=== PATIENT | female | born 1960 | race Caucasian/White ===

== ENCOUNTER 2020-09-29 17:37 | Emergency (ER) | payer SELFPAY ==
--- NOTE | ~2020-09-29 | XR_ITS ---
EXAMINATION: XR shoulder RT min 2V DATE: 09/29/2020 18:17 INDICATION: Right shoulder pain. Injury. TECHNIQUE: 4 views of right shoulder were obtained. COMPARISON: Right shoulder radiographs 09/22/2014 FINDINGS: Bone alignment is normal. No fracture. Glenohumeral joint is normal. There is mild acromioc lavicular joint osteoarthritis. IMPRESSION: 1. Mild right acromioclavicular joint osteoarthritis. Reviewed, dictated and finalized at location A. OR PUBLICATIONS
[2020-09-29 17:45] VITALS: BP 130/82; PULSE 82; RESP 20; TEMP 37; O2SAT 96
[2020-09-29] MEDS: KETOROLAC (*BKC) 60 MG/2 ML VIAL IM (18:05)
--- NOTE | 2020-09-29 19:02 | ED.UPPEXIN ---
HPI - Extremity Injury (Upper) General Source: patient Mode of arrival: ambulatory Limitations: no limitations History of Present Illness HPI narrative: Patient complains of right shoulder pain after loosing control of a big container. Pain is in right shoulder and moderately severe and ongoing, not relieved by home measures. Severity scale (1-10): 7 Relieving factors: none Exacerbating factors: movement of extremity Context: injury Associated symptoms: denies other symptoms Related Data Home Medications Medication Instructions Recorded Confirmed escitalopram oxalate 20 mg PO DAILY 09/29/20 09/29/20 oxybutynin chloride 10 mg PO DAILY 09/29/20 09/29/20 sucralfate 1 g PO DAILY 09/29/20 09/29/20 Allergies Allergy/AdvReac Type Severity Reaction Status Date / Time codeine Allergy Unknown Verified 09/29/20 17:52 Review of Systems Constitutional: Constitutional: Reports no additional constitutional complaints Eyes: Eyes: Reports no additional eye complaints ENT: Reports system reviewed and no additional complaints, except as documented Cardiovascular: Cardiovascular: Reports no additional cardiovascular complaints Respiratory: Respiratory: Reports no additional respiratory complaints Gastrointestinal: Gastrointestinal: Reports no additional gastrointestinal complaints Genitourinary: Genitourinary: Reports no additional female genitourinary complaints Musculoskeletal: Musculoskeletal: Reports no additional musculoskeletal complaints Integumentary/Breasts: Skin/Breast: Reports system reviewed and no additional complaints, except as docu Neurologic: Reports system reviewed and no additional complaints, except as documented Psychiatric: Psychiatric: Reports no additional psychiatric complaints Endocrine: Endocrine: Reports no additional endocrine complaints Hematologic/Lymphatic: Hematologic/Lymphatic: Reports no additional hematologic/lymphatic complaints Allergic/Immunologic: Allergic/Immunologic: Reports no additional allergic/immunologic complaints [facility] Past Medical History Medical History Chronic GERD Depression Surgical History Surgical History deliv NOS-unsp H/O: hysterectomy History of bladder surgery Family History Family History Mother Family history non-contributory Social History Social History Social History: no alcohol, no tobacco Exam Const: Orientation/consciousness: patient oriented x3 HENMT: Head: normal to inspection Eyes: Conjunctivae: conjunctivae normal Neck: Neck: normal visual inspection Chest: Chest palpation & inspection: normal inspection of the chest Resp: Effort & Inspection: normal respiratory effort Auscultation: clear to auscultation bilaterally Cardio: Rate: regular rate Rhythm: regular rhythm GI: GI Palp: Yes Soft to palpation (nontender) Skin: General skin exam: normal color Neuro: General: patient oriented x3 and moves all extremities Extrem: Other: tender at AC joint on right. Psych: Appearance: grossly normal Mental Status: mental status grossly normal Thought content: Yes Normal thought content present Course Course Emergency Course: plain films revealed a shoulder on the right. She was given ketorolac IM which seemed to help. We will send her home with ketorolac po, and some prn tramadol 50mg and a sling. I have instructed her in the use of the sling, and to follow up with her family doctor soon. Vital Signs Vital signs: Vital Signs Temperature 37.0 C 09/29/20 17:45 Pulse Rate 82 09/29/20 17:45 Respiratory Rate 20 09/29/20 17:45 Blood Pressure 130/82 09/29/20 17:45 Pulse Oximetry 96 09/29/20 17:45 Temperature 37.0 C 09/29/20 17:45 Pulse Rate 87 09/29/20 19:25 Respira
[2020-09-29 19:25] VITALS: BP 118/83; PULSE 87; RESP 14; O2SAT 100
== END 2020-09-29 19:32 | disposition home or self-care (01) ==
PROVIDERS: Emergency Provider Emergency Medicine; PCP Internal Medicine
DX: M25.511 Pain in right shoulder (principal); K21.9 Gastro-esophageal reflux disease without esophagitis
CPT/HCPCS: 73030; 96372; 99283; J1885

== ENCOUNTER 2022-05-27 14:30 | Emergency (ER) | payer SELFPAY ==
--- NOTE | ~2022-05-27 | XR_ITS ---
XR knee RT 2V DATE: 05/27/2022 15:30 INDICATION: Knee injury. [place] a pop. TECHNIQUE: Portable AP and lateral views COMPARISON: None FINDINGS: There is patellar enthesopathy at quadriceps and patellar tendon insertion sites. There is mild soft tissue prominence at the suprapatellar bursa which may indicate joint effusion. There is minimal periarticular spurring of the medial and patellofemoral compartments. Knee joint spa cristian are relatively preserved. No fracture or dislocation, periosteal reaction or bone destruction. No radiopaque intra-articular lo ose body or chondrocalcinosis is noted. IMPRESSION: Possible knee joint effusion Minimal osteoarthritis Reviewed, dictated and finalized at location A.
[2022-05-27 14:41] VITALS: BP 134/57; PULSE 72; O2SAT 96
[2022-05-27] MEDS: KETOROLAC 30 MG/ML VIAL (*BKC) IM (15:29)
--- NOTE | 2022-05-27 15:39 | ED.LOWEXIN ---
HPI - Extremity Injury (Lower) General Chief Complaint: Extremity Injury, Lower Stated Complaint: right knee injury Time Seen by Provider: 05/27/22 14:49 Source: patient Mode of arrival: ambulatory Limitations: no limitations History of Present Illness HPI Narrative: this is a 61-year-old female that presents with some right knee pain after she injured it going up stairs and causing some pain inflammation and tenderness is having increasing difficulty with walking it is tender to palpation and movement. complaint: knee injury Onset (ago): hour(s) Injury: Right: knee ( Tender to palpation) Type of Injury: blunt Place: home Severity: moderate Severity scale (1-10): 7 Relieving factors: immobilization Exacerbating factors: movement Context: walking Related Data Home Medications Medication Instructions Recorded Confirmed escitalopram oxalate 20 mg tablet 20 mg PO DAILY 09/29/20 05/27/22 oxybutynin chloride 10 mg 10 mg PO DAILY 09/29/20 05/27/22 tablet,extended release 24 hr sucralfate 1 gram tablet 1 g PO DAILY 09/29/20 05/27/22 Allergies Allergy/AdvReac Type Severity Reaction Status Date / Time codeine Allergy Unknown Verified 05/27/22 14:46 Review of Systems Review of Systems: All systems reviewed & are unremarkable except as noted in HPI and below PMFSH Past Medical History Medical History Chronic GERD Depression Surgical History Surgical History deliv NOS-unsp H/O: hysterectomy History of bladder surgery Family History Family History Mother Family history non-contributory Social History Social History Social History: no alcohol, no tobacco Exam Const: General: healthy appearing, no acute distress and alert Limitations: no limitations HENMT: Head: normal to inspection Ears: external ears normal Face/Nose/Sinus: Normal external nose present Face and sinus: normal facial exam Eyes: Conjunctivae: conjunctivae normal EOM: EOMs intact bilaterally Direct Ophthalmoscopy: no photophobia Neck: Neck: normal visual inspection Chest: Chest palpation & inspection: normal inspection of the chest Resp: Effort & Inspection: normal respiratory effort Cardio: Rate: regular rate Rhythm: regular rhythm GI: GI Palp: Yes Soft to palpation Skin: General skin exam: normal color Rashes: no rashes Wounds: no wounds Neuro: General: patient oriented x3 and moves all extremities Extrem: General: normal to inspection, no clubbing, cyanosis or edema and no pedal edema Other: Tenderness anterior knee with palpation and movement Psych: Mental Status: mental status grossly normal Affect: normal affect Course Course Emergency Course: reassessment of patient her pain has improved with Tylenol x-rays reviewed with patient which show minimal osteoarthritis. Vital Signs Vital signs: Vital Signs Pulse Rate 72 05/27/22 14:41 Blood Pressure 134/57 L 05/27/22 14:41 Pulse Oximetry 96 05/27/22 14:41 Oxygen Delivery Room Air 05/27/22 14:41 Pulse Rate 72 05/27/22 14:41 Blood Pressure 134/57 L 05/27/22 14:41 Pulse Oximetry 96 05/27/22 14:41 Oxygen Delivery Room Air 05/27/22 14:41 Critical Care Time Critical Care Time Critical Care Time: No Discharge Plan Discharge Clinical Impression: Right knee sprain Qualifiers: Encounter type: initial encounter Involved ligament of knee: unspecified ligament Qualified Code(s): S83.91XA - Sprain of unspecified site of right knee, initial encounter Patient Disposition: Home, Self-Care Condition: Stable Instructions: Antibiotic Form, Knee Sprain (ED) Additional Instructions: and take Tylenol or Motrin as needed for pain and follow-up with primary care physician for further evaluatio
[2022-05-27 16:10] VITALS: BP 111/61; PULSE 69; RESP 18; TEMP 36.2; O2SAT 96
== END 2022-05-27 16:10 | disposition home or self-care (01) ==
PROVIDERS: Emergency Provider Emergency Medicine; PCP Internal Medicine
DX: S83.91XA Sprain of unspecified site of right knee, initial encounter (principal)
CPT/HCPCS: 73560; 96372; 99283; J1885; L1830

== ENCOUNTER 2022-07-26 14:15 | Outpatient (CLI) | payer MEDICAID, SELFPAY ==
--- NOTE | ~2022-07-26 | XR_ITS ---
EXAMINATION: XR chest 2V DATE: 07/26/2022 14:45 INDICATION: Cough, shortness of breath and right-sided chest pain TECHNIQUE: PA and lateral views of the chest were obtained. COMPARISON: Chest radiograph dated 08/18/2015 FINDINGS: Small nodular opacity projecting over the lateral left lower lung zone. No other airspace opacities, pulmonary edema, pleural effusion or pneumothorax. The cardiomediastinal silhouette is normal. Severe midthoracic spondylosis. IMPRESSION: 1. New small nodular opacity at the lateral left lower lung zone which could represent atelectasis, p neumonia or neoplasm either benign or malignant. Recommend further evaluation with chest CT. Reviewed, dictated and finalized at location A. ERY HELPER IMPRESSION: 1. New small nodular opacity at the lateral left lower lung zone which could re present atelectasis, pneumonia or neoplasm either benign or malignant. Recommen d further evaluation with chest CT.
--- NOTE | 2022-07-26 12:07 | ECG_ITS ---
Measurements Intervals [place] Rate: 73 P: 52 AK: 137 QRS: 47 QRSD: 101 T: 40 QT: 396 QTc: 439 Interpretive Statements SINUS RHYTHM NORMAL ECG NO PREVIOUS ECG AVAILABLE FOR COMPARISON Electronically Signed On 07-26-2022 20:11:54 LICENSING ENGINEER by Feroz Adams M.D.
[2022-07-26 14:40] LABS: Basophils Absolute Auto 0.08 K/mm3 (0.00-0.10); Eosinophils Absolute Auto 0.23 K/mm3 (0.02-0.50); Eosinophils Percent Auto 2.9 % (1.0-6.0); Hematocrit 44.1 % (35.0-49.0); Hemoglobin 14.4 g/dL (12.0-15.0); Immature Granulocyte Absolute 0.02 K/mm3 (0.00-0.00); Immature Granulocyte Percent A 0.3 % (0.0-0.0); Lymphocytes Absolute Auto 1.63 K/mm3 (1.10-4.50); Lymphocytes Percent Auto 20.7 % (18.0-42.0); Mean Corpuscular HGB Conc 32.7 g/dL (32.0-36.0); Mean Corpuscular Hemoglobin 29.4 pg (27.0-31.0); Mean Corpuscular Volume 90.2 fL (78.0-102.0); Mean Platelet Volume 10.1 fl (9.2-11.8); Monocytes Absolute Auto 0.65 K/mm3 (0.10-0.90); Monocytes Percent Auto 8.3 % (2.0-11.0); Neutrophils Absolute Auto 5.3 K/mm3 (1.7-7.2); Neutrophils Percent Auto 66.8 % (50.0-70.0); Platelet Count Result 238 K/mm3 (150-420); Red Blood Count 4.89 M/mm3 (4.20-5.40); Red Cell Distribution Width 13.8 % (11.6-14.4); White Blood Count 7.9 K/mm3 (4.8-10.8)
[2022-07-26 14:55] LABS: D Dimer 0.47 mg/L (0.19-0.50)
[2022-07-26 15:14] LABS: Alanine Aminotransferase 26 U/L (14-59); Albumin Level 4.1 g/dL (3.4-5.0); Alkaline Phosphatase 79 U/L (46-116); Anion Gap 7 mmol/L (8-16); Aspartate Amino Transferase 20 U/L (15-37); Bilirubin,Total 0.4 mg/dL (0.00-1.00); Blood Urea Nitrogen 15 mg/dL (7-18); CRP < 0.5 mg/dL (0.0-0.9); Calcium 9.1 mg/dL (8.5-10.1); Carbon Dioxide 30 mmol/L (21-32); Chloride 103 mmol/L (98-108); Creatine Kinase 72 U/L (26-192); Estimated Glomerular Filt Rate 60; Glucose 109 mg/dL (70-99); Osmolality Calculated 291 mOsm/kg (285-295); Sodium 140 mmol/L (136-145); Thyroid Stimulating Hormone 8.52 uIU/mL (0.36-3.74); Total Protein 7.3 g/dL (6.4-8.2); Troponin I < 4.0 ng/L (0.00-60.4); Uric Acid 6.4 mg/dL (2.6-6.0)
== END 2022-07-26 14:16 | disposition home or self-care (01) ==
PROVIDERS: PCP Internal Medicine; Visit Provider Internal Medicine
DX: R07.9 Chest pain, unspecified (principal); M25.561 Pain in right knee; R91.8 Other nonspecific abnormal finding of lung field; R05.9 Cough, unspecified; R06.02 Shortness of breath
CPT/HCPCS: 36415; 71046; 80053; 82550; 82553; 84443; 84484; 84550; 85025; 85380; 86140; 93005

== ENCOUNTER 2022-09-05 09:30 | Outpatient (CLI) | payer MEDICAID, SELFPAY ==
--- NOTE | ~2022-09-05 | CT_ITS ---
CT Scan of the Chest without Contrast: Clinical Indication: Pulmonary nodule Technique: Contiguous sections were acquired throughout the chest without intravenous contrast. Dose reduction technique was used on this scan by utilizing automated exposure control and iterative recon struction technique. The dose-length product (DLP) was 509.39 mGy-cm. Findings: There is no evidence of any significant mediastinal, hilar or axillary lymphadenopathy. The mediastin al soft tissues appear normal. There is no evidence of pleural or pericardial effusion. The lungs are clear, aside from minimal atelectatic change or scarring at the lingula. Images through the upper abdomen reveal no abnormalities. Impression: Minimal atelectasis or scarring at the lingula, otherwise unremarkable exam. Reviewed, dictated and finalized at [facility]. SANDER OFFBEARER Impression: Minimal atelectasis or scarring at the lingula, otherwise unremarkable exam.
== END 2022-09-05 09:31 | disposition home or self-care (01) ==
LOC: CHSIMG 09:32
PROVIDERS: PCP Internal Medicine; Visit Provider Internal Medicine
DX: R91.1 Solitary pulmonary nodule (principal); R91.8 Other nonspecific abnormal finding of lung field
CPT/HCPCS: 71250

== ENCOUNTER 2022-09-11 13:25 | Outpatient (RCR) | payer OTHER, SELFPAY ==
--- NOTE | 2022-09-11 11:57 | PTOPEVAL1 ---
Assessment and note entered by Feroz Tijerina Evaluation Information Assessment Status Evaluation Diagnosis right knee pain Onset 06/26/22 Subjective Information Pt. reports that she developed knee pain around Thanksgiving. She reports she was going up her steps and felt a pop in the right knee. she reports that knee gave out on her. she was on crutches for about 3 weeks. She states that she continues to limp over the right knee. She states that pain is most notable with standing and walking. She reports that she is on her feet for 6 hours at work, and pain gets intense toward the end of the day. She reports also noticing increased pain with going up and down steps. She reports that her goal is to return to walking normal and decrease her pain. Reported Pain Level Pain Score 5: Self Report Assessment PT Clinical Summary Pt. is a 61 year old female who enters the clinic with right knee pain. She presents with impaired gait, impaird ROM, pain, and impaired strength. Continue with POC focusing on these areas to allow the pt. to be able to perform standing activities without pain or limitation. Plan of Care Interventions Electrical Stimulation,Gait Training,Hot Pack/Cold Pack,Manual Therapy,Neuro Re-education,Patient/ Caregiver Educati,Therapeutic Activities, Therapeutic Exercise,Self-Care/Home Management PT Services Indicated Yes Treatment Frequency and 2x/week x 10 visits Duration These treatments will address the objective and functional deficits as defined above. The patient will be advanced safely and appropriately in order for the patient to progress towards his/her prior level of function. Additional exercises will be introduced and as well as a comprehensive home exercise program upon discharge, if needed, ?to ensure carryover of functional gains achieved in the clinic. This treatment plan has been reviewed and agreement upon by the patient.
--- NOTE | 2022-12-20 13:54 | PCPTNOTE ---
Patient discharged due to not returning for remaining POC
== END 2022-10-17 23:59 | disposition home or self-care (01) ==
LOC: CHSPT 13:25
PROVIDERS: PCP Internal Medicine; Visit Provider Internal Medicine
DX: M25.561 Pain in right knee (principal)
CPT/HCPCS: 97014; 97035; 97110; 97140; 97161; G0283

== ENCOUNTER 2023-01-22 12:01 | Outpatient (CLI) | payer OTHER, SELFPAY ==
--- NOTE | ~2023-01-22 | CT_ITS ---
EXAMINATION: CT lung screening DATE: 01/22/2023 13:07 INDICATION: Lung cancer screening TECHNIQUE: Computed tomography (CT) of the chest was performed without intravenous contrast. The dose -length product was 278.87 mGy-cm. Automated exposure control and iterative reconstruction technique were employed. COMPARISON: CT dated 09/05/2022 FINDINGS: The heart size normal. No thoracic lymphadenopathy. No significant pleural or pericardial e ffusion. Heart size is normal. There is lingular atelectasis/scarring. No endobronchial lesions. No f ocal consolidation to suggest pneumonia. No pneumothorax. Moderate thoracic spondylosis. The left kid suyapa appears atrophic. IMPRESSION: 1. Lung-RADS category 1: Negative. Continue annual screening with noncontrast low-dose chest CT in 12 months. Reviewed, dictated and finalized at location [] IMPRESSION: 1. Lung-RADS category 1: Negative. Continue annual screening with noncontrast l ow-dose chest CT in 12 months.
--- NOTE | ~2023-01-22 | MM_ITS ---
EXAMINATION: MM screening yulia BI w kady HISTORY: Screening mammogram TECHNIQUE: Craniocaudal and mediolateral oblique 3-D tomosynthesis images were obtained and synthetic 2-D images were generated. CAD analysis was submitted and interpreted. COMPARISON: No prior mammogram is available for comparison at this institution. BREAST PARENCHYMAL COMPOSITION: There are scattered areas of fibroglandular density. FINDINGS: There is no evidence of suspicious mass, calcification, or architectural distortion to sugg est malignancy in either breast. There has been no suspicious interval change. IMPRESSION: 1. No mammographic evidence of malignancy. 2. Recommend routine screening mammography in one year. BI-RADS Category 1: Negative Reviewed, dictated and finalized at location A.
--- NOTE | ~2023-01-22 | DEXA_ITS ---
Bone Density Report Name: FAITH FRANKS Age: 62 Sex: Female Ethnicity: White Date of : 1960 Indication: postmenopausal; screening for osteoporosis; height loss; prior fracture; hysterectomy; Referring Provider: Miki Sims Study: Bone densitometry was performed. Exam Date: January 22, 2023 Accession number: [id number] Bone Density: Region BMD T-score Z-score Classification AP Spine(L1-L4) 1.129 0.7 2.4 Normal Femoral Neck (Left) 0.923 0.7 2.1 Normal Total Hip (Left) 1.137 1.6 2.7 Normal Femoral Neck (Right) 0.949 0.9 2.3 Normal Total Hip (Right) 1.062 1.0 2.1 Normal Femoral Neck Mean 0.936 0.8 2.2 Normal Total Hip Mean 1.099 1.3 2.4 Normal World Health Organization criteria for BMD impression classify patients as: Normal (T-score at or above -1.0), Osteopenia (T-score between -1.0 and -2.5), or Osteoporosis (T-score at or below -2.5). 10-year Fracture Risk: FRAX not reported because: All T-scores for Spine Total, Hip Total, Femoral Neck at or above -1.0 Prior hip or vertebral fracture Clinical Information Provided by Patient: Have had a previous hip or vertebral fracture Has had a low trauma fracture Smokes Has the following medical conditions: Hysterectomy Patient maximum height was 64 Menopause Age: 29 No regular weight bearing exercise Does not regularly consume dairy products Drinks caffeinated beverages Onset of menses at age 13 Number of children 3 Impression: The patient has normal bone mass. The patient has risk factors, including: smoking, previous fracture. Discussion: INCREASED RISK OF FRACTURE DUE TO HISTORY OF FRACTURE. The patient's previous fracture puts the patient at high risk of a future fracture. In untreated patients, the risk of osteoporotic fracture increases approximately two-fold for each 1.0 SD decrease in T-score. Low bone density is not the only risk factor for fracture; also consider factors such as patient's age, frailty or poor health, risk of falling, risk of injury, previous osteoporotic fracture, family history of osteoporosis, cigarette smoking, low body weight, etc. Not everyone with a low trauma fracture has osteoporosis; osteomalacia and other metabolic bone disorders should also be considered. Patients who have osteoporosis should be evaluated for specific diseases and conditions (secondary causes) that may cause or contribute to bone loss and fracture risk. National Osteoporosis Foundation (NOF) recommends pharmacologic intervention for patients with a prior hip or vertebral fracture regardless of BMD T-score. The patient should follow a healthful lifestyle (good nutrition with adequate calcium and vitamin D, and appropriate weight-bearing exercise). Follow-Up: Consider a repeat BMD and Vertebral Fracture Assessment (VFA) exam in 2 years or sooner if medically necessary, to reassess this patient's stat
[2023-01-22 12:18] LABS: Appearance Urine Clear (Clear); Basophils Absolute Auto 0.06 K/mm3 (0.00-0.10); Basophils Percent Auto 0.7 % (0.0-1.0); Bilirubin Urine Negative (Negative); Blood Urine 1+ (Negative); Color Urine Yellow (Yellow); Eosinophils Percent Auto 2.4 % (1.0-6.0); Glucose Urine UA Negative (Negative); Hemoglobin 14.2 g/dL (12.0-15.0); Immature Granulocyte Absolute 0.03 K/mm3 (0.00-0.00); Immature Granulocyte Percent A 0.4 % (0.0-0.0); Ketones Urine Negative (Negative); Leukocyte Esterase Ur Negative (Negative); Lymphocytes Absolute Auto 1.52 K/mm3 (1.10-4.50); Lymphocytes Percent Auto 18.3 % (18.0-42.0); Mean Corpuscular Hemoglobin 29.7 pg (27.0-31.0); Mean Platelet Volume 10.2 fl (9.2-11.8); Monocytes Absolute Auto 0.53 K/mm3 (0.10-0.90); Monocytes Percent Auto 6.4 % (2.0-11.0); Neutrophils Percent Auto 71.8 % (50.0-70.0); Nitrate Urine Negative (Negative); Platelet Count Result 218 K/mm3 (150-420); Protein Urine Negative (Negative); Red Blood Count 4.78 M/mm3 (4.20-5.40); Red Cell Distribution Width 13.6 % (11.6-14.4); Specific Grav Ur 1.025 (1.010-1.020); White Blood Count 8.3 K/mm3 (4.8-10.8); pH Urine 5.5 (5.0-8.0)
[2023-01-22 12:25] LABS: Add Urine Microscopic? YES; Bacteria Urine Trace /hpf; RBC Urine 0-2 /hpf (0-2); Squamous Epithelial Cell Urine Moderate /hpf (Few); WBC Urine 0-3 /hpf (0-3)
[2023-01-22 13:04] LABS: Alanine Aminotransferase 24 U/L (14-59); Albumin Level 3.7 g/dL (3.4-5.0); Alkaline Phosphatase 81 U/L (46-116); Anion Gap 8 mmol/L (8-16); Aspartate Amino Transferase 15 U/L (15-37); Bilirubin,Total 0.4 mg/dL (0.00-1.00); Blood Urea Nitrogen 14 mg/dL (7-18); CRP 0.6 mg/dL (0.0-0.9); Calcium 8.8 mg/dL (8.5-10.1); Carbon Dioxide 29 mmol/L (21-32); Chloride 106 mmol/L (98-108); Cholesterol 222 mg/dL (0-200); Estimated Glomerular Filt Rate 60; Glucose 131 mg/dL (70-99); HDL Direct 52 mg/dL (40-60); LDL Cholesterol Calculated 145 mg/dL (<130); Osmolality Calculated 298 mOsm/kg (285-295); Potassium 4.1 mmol/L (3.5-5.1); Sodium 143 mmol/L (136-145); Thyroid Stimulating Hormone 5.08 uIU/mL (0.36-3.74); Total Protein 6.9 g/dL (6.4-8.2); Triglycerides 124 mg/dL (0-150)
[2023-01-23 10:19] LABS: Hemoglobin A1C 6.4 % (<5.7)
== END 2023-01-22 12:02 | disposition home or self-care (01) ==
LOC: CHSIMG 12:02
PROVIDERS: PCP Internal Medicine; Visit Provider Internal Medicine
DX: R53.83 Other fatigue (principal); R07.9 Chest pain, unspecified; Z12.2 Encounter for screening for malignant neoplasm of respiratory organs; Z87.891 Personal history of nicotine dependence
CPT/HCPCS: 36415; 71271; 77063; 77067; 77080; 80053; 80061; 81001; 83036; 84443; 85025; 86140

== ENCOUNTER 2023-03-18 04:07 | Day surgery (SDC) | payer OTHER, SELFPAY ==
[2023-03-04 13:32] VITALS: BMI 34.0
[2023-03-18 07:24] VITALS: BP 171/85; PULSE 73; RESP 16; TEMP 35.9; O2SAT 97
--- NOTE | 2023-03-18 07:34 | PM.HPGS ---
History of Present Illness History of Present Illness Consent: Risks, benefits, and alternatives have been discussed and questions answered. Patient agrees to proceed with procedure. Chief complaint: neoplasm screening Narrative: Jennifer Baron is a 62 year old female Presents for screening colonoscopy. Patient's current weight appetite and bowel movements are normal. Patient denies abdominal pain. She has had no bleeding. Family history noncontributory. Patient reports a prior colonoscopy many years ago in gives a history of what sounds like diverticular disease. Review of Systems Review of Systems: Review of systems noncontributory. PMFSH Past Medical History Medical History Chronic GERD Depression Surgical History Surgical History deliv NOS-unsp H/O: hysterectomy History of bladder surgery Family History Family History Mother Family history non-contributory Social History Social History Social History: no alcohol, no tobacco Smoking packs per day: 0.5 Smoking cigarettes per day: 10.0 Years smoked: 30 Smoking pack-years: 15.00 Smoking status: Current every day smoker Tobacco type: cigarettes Alcohol intake: never Substance use: never Substance use type: does not use Living arrangements: with family Spiritual care concerns: No Meds Home Medications and Allergies Home Medications Medication Instructions Recorded Confirmed Type escitalopram oxalate 20 mg tablet 20 mg PO DAILY 09/29/20 03/04/23 History oxybutynin chloride 10 mg 10 mg PO DAILY 09/29/20 03/04/23 History tablet,extended release 24 hr sucralfate 1 gram tablet 1 g PO DAILY 09/29/20 03/04/23 History sodium,potassium,mag sulfates 17.5 See Rx Instructions PO .COMPLEX 02/19/23 03/04/23 Rx gram-3.13 gram-1.6 gram oral soln #354 mL (Suprep Bowel Prep Kit) meloxicam 15 mg tablet 15 mg PO DAILY 03/04/23 03/04/23 History metformin 500 mg PO DAILY 03/04/23 03/04/23 History Allergies Allergy/AdvReac Type Severity Reaction Status Date / Time codeine Allergy Unknown Verified 03/18/23 07:23 Vital Signs Vital Signs - 24 hr 03/18/23 07:24 Temperature 96.7 F L Pulse Rate 73 Respiratory Rate 16 Blood Pressure 171/85 H Pulse Oximetry 97 Oxygen Delivery Room Air Exam Narrative: Physical exam reveals patient to be alert. Vital signs stable. HEENT exam unremarkable. Patient is anicteric. Lungs are clear. Heart without murmur. Abdomen bowel sounds are present soft nontender with no organomegaly. Digital external rectal exam is normal. Assessment and Plan Assessment and plan (1) Encounter for screening colonoscopy: Code(s): Z12.11 - Encounter for screening for malignant neoplasm of colon Status: Acute Assessment and Plan: Patient presents today for screening colonoscopy. She appears to be at average risk for colon polyps. Further recommendations may be given after endoscopy.
[2023-03-18] MEDS: LACTATED RINGERS 1,000 ML 150 ML IV CONT (07:36)
[2023-03-18 07:39] LABS: Glucose Point of Care 114 mg/dl (65-105)
--- NOTE | 2023-03-18 07:55 | WPDANESEPPF ---
Anes - Initial Pre Proc Eval Procedure: Operation Date: 03/18/23 08:45 Proposed Procedures p Screening Colonoscopy - Mehran Reddy MD Date/Time: 03/18/23 07:55 Surgeon: Mehran Reddy MD Pre Op Diagnosis: neoplasm screening Patient Data Age: 62 Gender: F Height: 1.63 m Weight: 100 kg Last Vital Signs Temp 35.9 C L 03/18/23 07:24 Pulse 73 03/18/23 07:24 Resp 16 03/18/23 07:24 BP 171/85 H 03/18/23 07:24 Pulse Ox 97 03/18/23 07:24 O2 Del Method Room Air 03/18/23 07:24 Allergies Allergy/AdvReac Type Severity Reaction Status Date / Time codeine Allergy Unknown Verified 03/18/23 07:23 Home Medications Medication Instructions Recorded Confirmed Type escitalopram oxalate 20 mg tablet 20 mg PO DAILY 09/29/20 03/04/23 History oxybutynin chloride 10 mg 10 mg PO DAILY 09/29/20 03/04/23 History tablet,extended release 24 hr sucralfate 1 gram tablet 1 g PO DAILY 09/29/20 03/04/23 History sodium,potassium,mag sulfates 17.5 See Rx Instructions PO .COMPLEX 02/19/23 03/04/23 Rx gram-3.13 gram-1.6 gram oral soln #354 mL (Suprep Bowel Prep Kit) meloxicam 15 mg tablet 15 mg PO DAILY 03/04/23 03/04/23 History metformin 500 mg PO DAILY 03/04/23 03/04/23 History Laboratory Tests 03/18/23 07:35 POC Capillary Glucose 114 H mg/dl (65-105) Patient hx anesthesia problems: none Family hx anesthesia problems: none Results Review: All pre-operative results and documents have been reviewed as part of the pre-operative evaluation. [facility] Past Medical History Medical History Chronic GERD Depression Surgical History Surgical History deliv NOS-unsp H/O: hysterectomy History of bladder surgery Family History Family History Mother Family history non-contributory Social History Social History Social History: no alcohol, no tobacco Smoking packs per day: 0.5 Smoking cigarettes per day: 10.0 Years smoked: 30 Smoking pack-years: 15.00 Smoking status: Current every day smoker Tobacco type: cigarettes Alcohol intake: never Substance use: never Substance use type: does not use Living arrangements: with family Spiritual care concerns: No Anes - Eval Final PreProcedure Day of Procedure 03/18/23 07:55 Patient weight: obese Heart: regular rate and rhythm Lungs: decreased breath sounds Airway: Mallampati scale class III Neurological: alert and oriented Last oral intake: >/= 8 hours ASA classification: III Emergent: no Anesthetic plan: proceed Anesthesia type and monitoring: general GIVS and standard monitoring Results Review: All pre-operative results and documents have been reviewed as part of the pre-operative evaluation. Informed Consent: The patient's anesthetic plan and its attendant risks and benefits were discussed with the patient/family/POA. Questions were solicited and answers provided to the satisfaction of the patient/family/POA.
[2023-03-18 08:29] VITALS: BP 102/73; PULSE 71; RESP 17; O2SAT 96
[2023-03-18 08:39] VITALS: BP 115/63; PULSE 67; RESP 23; O2SAT 96
[2023-03-18 08:49] VITALS: BP 113/62; PULSE 63; RESP 19; O2SAT 100
== END 2023-03-18 09:12 | disposition home or self-care (01) ==
PROVIDERS: PCP Internal Medicine; Visit Provider Internal Medicine Gastroenterology
PROC: 0DJD8ZZ Inspection of Lower Intestinal Tract, Via Natural or Artificial Opening Endoscopic (ICD-10-PCS; CPT 45378; principal; 2023-03-18 08:45)
DX: Z12.11 Encounter for screening for malignant neoplasm of colon (principal); D12.2 Benign neoplasm of ascending colon; K57.30 Diverticulosis of large intestine without perforation or abscess without bleeding; K64.8 Other hemorrhoids; F32.A Depression, unspecified; F17.210 Nicotine dependence, cigarettes, uncomplicated; E66.9 Obesity, unspecified; Z68.37 Body mass index [BMI] 37.0-37.9, adult; Z79.84 Long term (current) use of oral hypoglycemic drugs
CPT/HCPCS: 45380; 45385; 82948; 88305; J2371; J2704; J7120

== ENCOUNTER 2024-06-10 13:49 | Outpatient (CLI) | payer OTHER, SELFPAY ==
--- NOTE | ~2024-06-10 | XR_ITS ---
Lumbosacral Spine: AP and lateral views Clinical History: Pain Findings: The normal lordotic curve is maintained. The vertebral bodies and posterior elements are i ntact. There are minimal intervertebral disc degenerative changes. There is moderate facet arthropath y at the lower lumbar spine. The sacroiliac joints are normally outlined. Impression: Mild degenerative spondylosis overall, as detailed above. Reviewed, dictated and finalized at location . APEUTIC SALES SPECIALIST Impression: Mild degenerative spondylosis overall, as detailed above.
== END 2024-06-10 13:50 | disposition home or self-care (01) ==
LOC: CHSIMG 13:52
PROVIDERS: PCP Internal Medicine; Visit Provider Nurse Practitioner Family
DX: M54.50 Low back pain, unspecified (principal); M43.06 Spondylolysis, lumbar region
CPT/HCPCS: 72100

== ENCOUNTER 2025-03-12 18:09 | Emergency (ER) | payer SELFPAY ==
--- NOTE | ~2025-03-12 | XR_ITS ---
EXAM: XR ankle RT min 3V DATE: 03/12/2025 18:30 HISTORY: Fall, lateral Rt. ankle pain swelling . COMPARISON: None available. FINDINGS: Normal mineralization. Oblique distal right fibular fracture above the level of the ankle, with 6 mm posterior displacement and mild posterior angulation. Small posterior malleolus fracture f ragment. Slight widening of the medial gutter. No lytic or blastic lesion. Mild scattered degenerativ e change. Moderate Achilles and mild plantar enthesopathy. Prominent os trigonum. No erosion or perio steal change. Soft tissue swelling about the ankle. IMPRESSION: Oblique distal right fibular fracture with mild posterior displacement and angulation (We sophia type C). Medial gutter widening as can be seen with medial ligamentous injury. Small posterior ma lleolus fracture. Reviewed, dictated and finalized at location K. IMPRESSION: Oblique distal right fibular fracture with mild posterior displacem ent and angulation (Hung type C). Medial gutter widening as can be seen with m edial ligamentous injury. Small posterior malleolus fracture.
[2025-03-12 18:09] VITALS: BP 156/81; PULSE 70; RESP 18; TEMP 36.7; O2SAT 95
--- OUTSIDE RECORDS SUMMARY | 2025-03-12 18:15 | XMS_ITS | Clinical Summary ---
Author Organization [facility] Address [address] [place] [address] Care Team Providers Care Terrazzo Tile Setter Name Role Phone Unavailable Primary Care Provider Unavailabl e Social History Tobacco Use Types Packs/Day Years Used Date Smoking Tobacco: Never Assessed Comments Unknown Sex and Gender Information Value Date Recorded Sex Assigned at Not on file Legal Sex Female 11:38 PM CDT Gender Identity Not on file Sexual Orientation Not on file Last Filed Vital Signs Vital Sign Reading Time Taken Comments Blood Pressure 132/90 04/04/2015 1:42 PM CDT Pulse 89 04/04/2015 1:42 PM CDT Temperature - - Respiratory Rate - - Oxygen Saturation - - Inhaled Oxygen Concentration - - Weight 104.3 kg (230 lb) 04/04/2015 1:42 PM CDT Height 170.2 cm (5' 7) 04/04/2015 1:42 PM CDT Body Mass Index 36.02 04/04/2015 1:42 PM CDT Plan of Treatment Health Maintenance Due Date Last Done Comments Colorectal Cancer Screening Colonoscopy (10 Years) 1959 Hepatitis C 12/24/1977 DTaP, Tdap and Td Vaccines ( 1 - Tdap) 12/24/1978 Mammogram Screening 1999 Pneumococcal Vaccine: 50+ Ye ars (1 of 1 - PCV) 12/24/2009 Zoster Vaccines (1 of 2) 12/24/2009 COVID-19 Vaccine ( - 2023-2 5 season) 2024 Dexa Scan (General) 12/24/2024 RSV Immunization or 60+ Years (1 - 1-dose 75+ series) 12/24/2034 Meningococcal B Vaccine Aged Out No l onger eligible based on patient's age to complete this topic Meningococcal Vaccine Aged Out No shaan cb eligible based on patient's age to complete this topic RSV Immunizations Under 20 Months Aged Out No longer eligible based on patient's age to complete this topic
--- NOTE | 2025-03-12 18:18 | ED_ITS ---
HPI - Extremity Injury (Lower) General Chief Complaint: Extremity Injury, Lower Stated Complaint: right ankle injury Time Seen by Provider: 03/12/25 18:18 Source: patient Mode of arrival: wheelchair Limitations: no limitations History of Present Illness HPI Narrative: Patient is a 64-year-old female with a right ankle injury after stepping off 2 steps of stairs this into the backyard. Patient slipped on the last step and went forward while sliding on her right ankle foot. No head or neck injury. No other injuries. All the pain is on the right lateral ankle. There is swelling to that area. MD complaint: ankle injury ( Right lateral) Onset (ago): hour(s) ( 1) Type of Injury: inversion and eversion Place: home and street/outdoors Severity: moderate Severity scale (1-10): 5 Relieving factors: cold therapy and rest Exacerbating factors: weight bearing, movement and palpation Context: fall and walking Associated symptoms: swelling, numbness and unable to bear weight Other symptoms: none Treatments prior to arrival: cold therapy Related Data Home Medications ?Medication ?Instructions ?Recorded ?Confirmed ?Last Taken ?Type escitalopram oxalate 20 mg tablet 20 mg PO DAILY 09/29/20 03/04/23 Unknown History oxybutynin chloride 10 mg 10 mg PO DAILY 09/29/20 03/04/23 Unknown History tablet,extended release 24 hr sucralfate 1 gram tablet 1 g PO DAILY 09/29/20 03/04/23 Unknown History meloxicam 15 mg tablet 15 mg PO DAILY 03/04/23 03/04/23 Unknown History metformin 500 mg PO DAILY 03/04/23 03/04/23 Unknown History Allergies Allergy/AdvReac Type Severity Reaction Status Date / Time codeine Allergy Unknown Verified 03/18/23 07:23 Review of Systems Review of Systems: All systems reviewed & are unremarkable except as noted in HPI and below Constitutional: Constitutional: Reports no additional constitutional complaints Eyes: Eyes: Reports no additional eye complaints ENT: Reports system reviewed and no additional complaints, except as documented Cardiovascular: Cardiovascular: Reports no additional cardiovascular complaints Respiratory: Respiratory: Reports no additional respiratory complaints Gastrointestinal: Gastrointestinal: Reports no additional gastrointestinal complaints Genitourinary: Genitourinary: Reports no additional female genitourinary complaints Musculoskeletal: Musculoskeletal: Reports no additional musculoskeletal complaints Integumentary/Breasts: Skin/Breast: Reports system reviewed and no additional complaints, except as docu Neurologic: Reports system reviewed and no additional complaints, except as documented Psychiatric: Psychiatric: Reports no additional psychiatric complaints Endocrine: Endocrine: Reports no additional endocrine complaints Hematologic/Lymphatic: Hematologic/Lymphatic: Reports no additional hematologic/lymphatic complaints Allergic/Immunologic: Allergic/Immunologic: Reports no additional allergic/immunologic complaints PMFSH Past Medical History Medical History Chronic GERD Depression Surgical History Surgical History H/O: hysterectomy deliv NOS-unsp History of bladder surgery Family History Family History Mother Family history non-contributory Social History Social History Social History: no alcohol, no tobacco Smoking packs per day: 0.5 Smoking cigarettes per day: 10.0 Years smoked: 30 Smoking pack-years: 15.00 Smoking status: Current every day smoker Tobacco type: cigarettes Alcohol intake: never Substance use: never Substance use type: does not use Living arrangements: with family Spiritual care concerns: No Exam Const: General: healthy appearing Nutritional Appearance: well nourished Orientation/consciousness: patient oriented x3 HENMT: Head: normal to inspection Ears: external ears normal Face/Nose/Sinus: Normal external nose present Eyes: Conjunctivae: conjunctivae normal Pupils: Equal, round and reactive pupils present EOM: EOMs intact bilaterally Neck: Neck: normal visual inspection Chest: Chest palpation & inspection: normal inspection of the chest Resp: Effort & Inspection: normal respiratory effort and not labored Auscultation: clear to auscultation bilaterally and no crackles Cardio: Rate: regular rate Rhythm: regular rhythm Heart sounds: no murmurs GI: Inspection: non-distended GI Palp: Yes Soft to palpation and No Tenderness to palpation present (GI) Auscultation: normal bowel sounds : General: Yes bladder normal to palpation Back/Spine/Pelvis: Back: no CVA tenderness Skin: General skin exam: normal color Rashes: no rashes Wounds: no wounds Neuro: General: patient oriented x3, moves all extremities and no meningeal signs Extrem: General: abnormal to inspection Other: right ankle lateral aspect has malleolus swelling and tenderness without ecchymosis; circumferentially the right ankle is painful to the patient and there is some aspect of lateral numbness; foot distally is without injury Psych: Mental Status: mental status grossly normal Affect: normal affect Attitude: cooperative Course Vital Signs Vital signs: Vital Signs Temperature 36.7 C 03/12/25 18:09 Pulse Rate 70 03/12/25 18:09 Respiratory Rate 18 03/12/25 18:09 Blood Pressure 156/81 H 03/12/25 18:09 Pulse Oximetry 95 03/12/25 18:09 Oxygen Delivery Room Air 03/12/25 18:09 Temperature 36.7 C 03/12/25 18:09 Pulse Rate 70 03/12/25 18:09 Respiratory Rate 18 03/12/25 18:09 Blood Pressure 156/81 H 03/12/25 18:09 Pulse Oximetry 95 03/12/25 18:09 Oxygen Delivery Room Air 03/12/25 18:09 MDM - Extremity Injury (Lower) MDM Narrative Medical decision making narrative: patient is a 64-year-old female with right ankle injury. We will get an x-ray. Patient did not want pain management at this time. discussed the fracture with the patient and she desires pain medicine at this time. She will see orthopedic next week. OCL placed at this time. Imaging Data Attestation: I personally reviewed and interpreted this imaging study as follows: Radiologist's impression: Right ankle x-ray shows IMPRESSION: Oblique distal right fibular fracture with mild posterior displacement and angulation (Hung type C). Medial gutter widening as can be seen with medial ligamentous injury. Small posterior malleolus fracture. Discharge Plan Discharge Clinical Impression: Ankle fracture, right Qualifiers: Encounter type: initial encounter Fracture type: closed Qualified Code(s): S82.891A - Other fracture of right lower leg, initial encounter for closed fracture Fibula fracture Qualifiers: Encounter type: initial encounter Fibula location: distal Fracture type: closed Fracture morphology: unspecified fracture morphology Laterality: right Qualified Code(s): S82.831A - Other fracture of upper and lower end of right fibula, initial encounter for closed fracture Patient Disposition: Home Condition: Stable Instructions: Ankle Fracture (DC) Additional Instructions: please follow-up with the primary doctor in the next week to get a referral for orthopedic surgeon. You will need to see an orthopedic surgeon in the upcoming week. Patient Language: Lithuanian Prescriptions: New hydrocodone-acetaminophen 5-325 mg tablet 1 tablet PO Q8H PRN (Reason: pain) Qty: 20 0RF No Action oxybutynin chloride 10 mg tablet extended release 24hr 10 mg PO DAILY sucralfate 1 gram tablet 1 g PO DAILY escitalopram oxalate 20 mg tablet 20 mg PO DAILY meloxicam 15 mg tablet 15 mg PO DAILY metformin 500 mg PO DAILY sodium,potassium,mag sulfates [Suprep Bowel Prep Kit] 17.5-3.13-1.6 gram recon soln See Rx Instructions PO .COMPLEX Qty: 354 0RF Rx Instructions: TAKE DIRECTED Follow-up/Referrals: Miki Sims MD [Primary Care Provider] - Stand Alone Forms: Work/School Release IP Time of Disposition: 18:54
--- OUTSIDE RECORDS SUMMARY | 2025-03-12 18:39 | XMS_ITS | Clinical Summary ---
Author Organization [facility] Address [address] [place] [address] Care Team Providers Care Geological Engineer Name Role Phone Unavailable Primary Care Provider [...]
--- NOTE | 2025-03-12 18:48 | PC.NURSE ---
report to danny iverson
--- NOTE | 2025-03-12 18:53 | PC.NURSE ---
ASSUMED CARE. REPORT RECEIVED FROM ALINE JIMÉNEZ. PATIENT IS CURRENTLY RESTING ON STRETCHER WITH RIGHT LOWER LEG ELEVATED ON PILLOW AND ICE PACK IN PLACE. FELECIA STEIN, GETTING SUPPLIES FOR OCL SPLINT
[2025-03-12] MEDS: HYDROcodone/acetaminophen (*CRX) 5-325 MG TABLET 1 TAB PO (18:57)
[2025-03-12 19:28] VITALS: BP 148/82; PULSE 74; RESP 20; O2SAT 97
== END 2025-03-12 19:28 | disposition home or self-care (01) ==
PROVIDERS: Emergency Provider Emergency Medicine; PCP Internal Medicine
DX: S82.831A Other fracture of upper and lower end of right fibula, initial encounter for closed fracture (principal); S82.891A Other fracture of right lower leg, initial encounter for closed fracture; F17.210 Nicotine dependence, cigarettes, uncomplicated; W10.9XXA Fall (on) (from) unspecified stairs and steps, initial encounter
CPT/HCPCS: 29515; 73610; 99284; A9270

== ENCOUNTER 2025-03-21 09:35 | Outpatient (CLI) | payer MEDICARE, SELFPAY ==
--- NOTE | ~2025-03-21 | XR_ITS ---
Right ankle Technique: AP, oblique, and lateral views were obtained. Clinical History: Pain, fracture COMPARISON: 03/12/2025 Findings: Oblique/spiral fracture distal fibular shaft is unchanged. No other fracture or dislocation seen. Cast in place overlying the ankle. Ankle mortise and other visualized joint spaces are preserv ed. Soft tissues are otherwise unremarkable. Impression: Stable oblique/spiral fracture the distal fibular shaft with overlying cast in place. Reviewed, dictated and finalized at location M. Impression: Stable oblique/spiral fracture the distal fibular shaft with overlying cast in place.
== END 2025-03-21 09:36 | disposition home or self-care (01) ==
LOC: CHSIMG 09:38
PROVIDERS: PCP Internal Medicine; Visit Provider Orthopaedic Surgery
DX: M25.571 Pain in right ankle and joints of right foot (principal); S82.431A Displaced oblique fracture of shaft of right fibula, initial encounter for closed fracture
CPT/HCPCS: 73610

== ENCOUNTER 2025-03-23 13:08 | Outpatient (CLI) | payer MEDICARE, MEDICAID, SELFPAY ==
--- NOTE | 2025-03-23 13:12 | ECG_ITS ---
Test Date: 2025-03-23 13:42:41 Measurements Intervals Tracy Rate: 80 P: 46 RI: 174 QRS: 39 QRSD: 88 T: 57 QT: 364 QTc: 422 Interpretive Statements SINUS RHYTHM POSSIBLE RIGHT VENTRICULAR CONDUCTION DELAY CANNOT R/O SEPTAL INFARCT, AGE INDETERMINATE BORDERLINE ST-T WAVE ABNORMALITY- DIFFUSE LEADS BASELINE ARTIFACT- I, II, III, AVR, AVL ABNORMAL ECG No previous ECG available for comparison Electronically Signed On 03-23-2025 14:08:15 CDT by Nic Ovalle D.O.
--- OUTSIDE RECORDS SUMMARY | 2025-03-23 13:24 | XMS_ITS | Clinical Summary ---
Author Organization [facility] Address [address] [place] [id number] Care Team Providers Care Armature Tester Name Role Phone Unavailable Primary Care Provider [...]
[2025-03-23 14:28] LABS: Anion Gap 9 mmol/L (4-12); Blood Urea Nitrogen 18 mg/dL (7-17); Calcium 10.0 mg/dL (8.4-10.2); Carbon Dioxide 30 mmol/L (22-30); Chloride 101 mmol/L (98-107); Estimated Glomerular Filt Rate > 60; Glucose 156 mg/dL (65-110); Osmolality Calculated 294 mOsm/kg (285-295); Potassium 4.5 mmol/L (3.4-5.0); Sodium 140 mmol/L (137-145)
== END 2025-03-23 13:09 | disposition home or self-care (01) ==
PROVIDERS: PCP Internal Medicine; Visit Provider Anesthesiology
DX: Z01.818 Encounter for other preprocedural examination (principal); E11.9 Type 2 diabetes mellitus without complications; R94.31 Abnormal electrocardiogram [ECG] [EKG]
CPT/HCPCS: 36415; 80048; 93005

== ENCOUNTER 2025-03-24 01:54 | Day surgery (SDC) | payer MEDICARE, SELFPAY ==
[2025-03-22 08:34] VITALS: BMI 36.3
--- NOTE | 2025-03-22 09:20 | PC.NURSE ---
Report to the Outpatient Waiting Room, entrance under the green pavilion located off [facility], at time __9:00am__ on date __03/24/25___. Planned Procedure Time: __11:00am___.? Time changes happen often and if your time is changed the preop area will call you the afternoon before. - You and your visitor will be asked to self-screen and do not enter if you have any COVID symptoms. Please call surgeon if you need to reschedule. - A mask is optional within the hospital at this time. Patients may have clear liquids (water, carbonated beverages, clear teas, apple juice) until 3 hours prior to surgery (8:00AM) with a maximum of 20 ounces. - No food from midnight until time of surgery and no smoking, or chewing tobacco (or any form of nicotine). No chewing gum, candy or mints. Take only the following medications with a SIP of water on the morning of surgery: MAY TAKE HYDROCODONE NEEDED DO NOT STOP ANY OF YOUR OTHER PRESCRIPTION MEDICATIONS PRIOR TO SURGERY EXCEPT THE FOLLOWING Hold all vitamins and supplements for 3 days per anesthesiologist. Medications to discontinue per physician ___HOLD MELOXICAM(ALL NSAIDS) 3 DAYS PRE-OP PER DR FRANCO Date to take last dose___PT STATES SHE HAS BEEN OUT OF MELOXICAM X3 WEEKS Please no make-up, nail bhutanese, hairspray, perfume, deodorant, or body powder the day of surgery.? No jewelry (including any body piercings) or valuables the day of surgery, leave them at home.? Please take a shower or bath the night before, or the morning of, surgery with an antibacterial soap.? Wear comfortable, loose fitting clothing.? - Jewelry must be removed prior to entering the operating room.? Rings and piercings that are not removed may be cut off. - The hospital will not accept responsibility for valuables.? - Please leave all valuables, including medications, at home the day of surgery. If you are going home after surgery, a licensed fuel truck driver must drive you home.? - NO public transportation without another adult if you receive anesthesia. - We recommend that an adult stay with you for 24 hours following discharge. - We also recommend that you do not drive, make important decision, drink alcoholic beverages, or take any drugs that were not prescribed by your health care provider for at least 24 hours after your discharge time. Follow any additional instructions given to you from your surgeon. Telephone instructions given to ____PATIENT and asked if any additional questions and then verbalized understanding. Patient advised to call surgeon office or pre surgery nurse liaison [phone] if any additional questions.
[2025-03-24] VITALS (8 sets, daily range): BP systolic 116–167; BP diastolic 78–91; PULSE 72–100; RESP 14–16; TEMP 36.2; O2SAT 90–96; BMI 37.5
--- NOTE | ~2025-03-24 | XR_ITS ---
EXAMINATION: XR surgery orthopedic DATE: 03/24/2025 11:40 INDICATION: ORIF right ankle fracture TECHNIQUE: 4 fluoroscopic images of the right ankle were obtained during procedure performed by Dr. Leong. Radiologist was not present for the imaging or procedure. The amount of fluoroscopy time used during this procedure was 0.3 minutes. Total DAP was 0.173 Gycm^2. COMPARISON: None. FINDINGS: Interval reduction and internal fixation of a fracture of the distal metadiaphyseal region of the left fibula with interfragmentary screw and lateral plate and screws. There is also been a distal tibiofibular syndesmotic fixation with metallic buttons on either side of lucent tunnels extending across the metaphyseal regions of the distal tibia and fibula. No other fractures identified. Alignment appears near-anatomic with a congruent ankle mortise. IMPRESSION: 1. Near-anatomic alignment post open reduction internal fixation of a distal right fibular fracture including distal tibiofibular syndesmotic fixation. Reviewed, dictated and finalized at location A. IMPRESSION: 1. Near-anatomic alignment post open reduction internal fixation of a distal ri ght fibular fracture including distal tibiofibular syndesmotic fixation.
--- NOTE | 2025-03-24 07:20 | WPDHPUPDATE1 ---
History and Physical Update Update Date/Time: 03/24/25 07:20 History and Physical has been reviewed, including an updated exam of the patient. There are NO changes in the patient's condition. Risks, benefits, and alternatives have been discussed and questions answered. Patient agrees to proceed with procedure.
[2025-03-24] MEDS: ACETAMINOPHEN 500 MG TABLET 1000 MG PO (09:35)
[2025-03-24] MEDS: KETOROLAC 15 MG/ML VIAL (*BKC) IV PUSH (09:35)
--- NOTE | 2025-03-24 10:05 | WPDANESEPPF ---
Anes - Initial Pre Proc Eval Procedure: Operation Date: 03/24/25 11:00 Proposed Procedures p Open Reduction Internal Fixation of Right Ankle Fracture - Drew Whalen MD Date/Time: 03/24/25 10:05 Surgeon: Drew Whalen MD Pre Op Diagnosis: Right Ankle Fracture Patient Data Age: 64 Gender: F Height: 1.63 m Weight: 99.1 kg Allergies Allergy/AdvReac Type Severity Reaction Status Date / Time codeine Allergy Severe THROAT Verified 03/24/25 10:05 SWELLING, HIVES Home Medications ?Medication ?Instructions ?Recorded ?Confirmed ?Type escitalopram oxalate 20 mg tablet 20 mg PO DAILY 09/29/20 03/22/25 History oxybutynin chloride 10 mg 10 mg PO DAILY 09/29/20 03/22/25 History tablet,extended release 24 hr sucralfate 1 gram tablet 1 g PO DAILY 09/29/20 03/22/25 History meloxicam 15 mg tablet 15 mg PO HS 03/04/23 03/22/25 History hydrocodone 5 mg-acetaminophen 325 1 tablet PO Q8H PRN pain #20 tabs 03/12/25 03/22/25 Rx mg tablet fexofenadine 180 mg tablet 180 mg PO DAILY 03/22/25 03/22/25 History (Seema Allergy) metformin 500 mg tablet 500 mg PO .AFTERNOON 03/22/25 03/22/25 History Laboratory Tests 03/24/25 09:26 POC Capillary Glucose 112 H mg/dl (65-105) Patient hx anesthesia problems: none Family hx anesthesia problems: none Results Review: All pre-operative results and documents have been reviewed as part of the pre-operative evaluation. [facility] Past Medical History Medical History (Updated 03/24/25 @ 10:06 by Linus Marrero DO) Anxiety Diabetes type 2, controlled TALIA (obstructive sleep apnea) Acute disruption of syndesmosis of ankle joint Chronic GERD Depression Surgical History Surgical History H/O: hysterectomy deliv NOS-unsp History of bladder surgery Family History Family History Mother Family history non-contributory Social History Social History Social History: no alcohol, no tobacco Smoking packs per day: 0.5 Smoking cigarettes per day: 10.0 Years smoked: 30 Smoking pack-years: 15.00 Smoking status: Current every day smoker Tobacco type: cigarettes Smoking end date: 07/04/24 Additional smoking assessment comments: CURRENTLY-VAPES ON AND OFF ALL DAY, UNSURE OF NICOTINE Alcohol intake: never Substance use: never Substance use type: does not use Living arrangements: with family Additional living arrangements comments: ROOMMATE Spiritual care concerns: No Anes - Eval Final PreProcedure Day of Procedure 03/24/25 10:05 Patient weight: obese Heart: regular rate and rhythm Lungs: clear to auscultation Airway: Mallampati scale class III Neurological: alert and oriented Last oral intake: >/= 8 hours ASA classification: III Emergent: no Anesthetic plan: proceed Anesthesia type and monitoring: general LMA and standard monitoring Results Review: All pre-operative results and documents have been reviewed as part of the pre-operative evaluation. Informed Consent: The patient's anesthetic plan and its attendant risks and benefits were discussed with the patient/family/POA. Questions were solicited and answers provided to the satisfaction of the patient/family/POA.
[2025-03-24] MEDS: ceFAZolin 2 GM in SODIUM CHLORIDE 0.9% IV 50 ML 100 ML IVPB (10:44)
[2025-03-24] MEDS: BUPIVACAINE/EPINEPHRINE 0.5% 50 ML VIAL 30 ML INFILTRATE (11:02)
[2025-03-24] MEDS: LACTATED RINGERS 1,000 ML 30 ML IV CONT ×2 (11:58)
--- NOTE | 2025-03-24 12:21 | P.OP_ITS ---
Procedure Note - Detailed Date of Procedure 03/24/25 Pre-op Diagnosis Right Ankle fibular shaft Fracture, syndesmosis disruption Post-op Diagnosis Same Procedure Performed open reduction internal fixation right fibular shaft fracture, open reduction internal fixation syndesmosis disruption Surgeon Drew Whalen MD Health Safety Coordinator 1st assistant front office manager Anesthesia General Indications 64-year-old woman who fell and sustained a right ankle fracture subluxation. Distal fibular fracture with displacement. Noted subluxation of the syndesmosis ankle mortise. Patient presents for operative treatment. Description of Procedure After informed consent, the operative extremity was marked in the preoperative holding area. Patient received intravenous antibiotics. Patient was then taken to the operating room and underwent general anesthesia by the anesthesia team. They were positioned supine on the operating room table. A time-out was performed confirming the patient, site of the surgery, operative plan. Lower extremity then prepped and draped in the usual sterile surgical fashion using ChloraPrep skin solution. Foot and ankle exsanguinated and a thigh tourniquet inflated to 250 mmHg. Longitudinal incision made over the lateral ankle distal diaphysis of the fibula with a 15 blade knife. Hemostasis controlled with electrocautery. Full-thickness soft tissue flaps developed and the fascia was incised in line with the skin incision. Fracture identified and cleared with a dental pick, irrigation and rongeur. Fracture reduced and held with bone-holding clamp. Image intensification confirmed reduction of the fracture and the ankle mortise. Fixation achieved with a 3.5 millimeter fully-threaded cortical screw placed in lag technique across the fracture. Neutralization with a lateral plate with unicortical screws distal to fracture and bicortical screws proximal to the fracture. Good alignment and stability of the fracture noted. Image intensification used to confirm reduction of the fracture and placement of the hardware. ankle mortise stress fluoroscopy performed and instability of the syndesmosis noted. Indicated for syndesmosis fixation. With Arthrex tight rope system utilized. Drill hole placed from the fibula into the tibia and verified with image intensification. The tight rope system was then passed and the tibial button secured. Ankle mortise and syndesmosis were then reduced and the lateral button was secured. 2nd tight rope placed just proximal to the 1st 1 and verified with image intensification. Stress of the ankle performed with good stability of the ankle mortise in all directions. Wound thoroughly irrigated with antibiotic solution. Fascia repaired with 00 Vicryl interrupted suture. Subcutaneous tissue repaired with 000 Monocryl interrupted suture and Betsy. Sterile dressings applied. Patient awoken from anesthesia, extubated and taken to the recovery room in stable condition. All sponge, needle and instrument counts correct at the end of the case. Palpable dorsalis pedis pulse noted prior to dressing. Implants Arthrex distal fibula locking plate with tight rope syndesmosis repair x2 Estimated Blood Loss 11 Tourniquet Time Total Tourniquet Time: 40 Drains No Packing No Pathology None sent Complications None Condition Stable Disposition PACU [facility] Billing Surgery - Charge Forward: Surgery Billing ([id number], [id number])
[2025-03-24] MEDS: oxyCODONE HCL (*CRX) 5 MG TAB IR PO (13:41)
== END 2025-03-24 14:23 | disposition home or self-care (01) ==
PROVIDERS: PCP Internal Medicine; Visit Provider Orthopaedic Surgery
PROC: (CPT 27784; principal; 2025-03-24 11:00)
DX: S82.891A Other fracture of right lower leg, initial encounter for closed fracture (principal); S93.432A Sprain of tibiofibular ligament of left ankle, initial encounter; F41.9 Anxiety disorder, unspecified; E11.9 Type 2 diabetes mellitus without complications; G47.33 Obstructive sleep apnea (adult) (pediatric); K21.9 Gastro-esophageal reflux disease without esophagitis; F32.A Depression, unspecified; F17.290 Nicotine dependence, other tobacco product, uncomplicated; W10.9XXA Fall (on) (from) unspecified stairs and steps, initial encounter; E66.9 Obesity, unspecified; Z68.37 Body mass index [BMI] 37.0-37.9, adult; Z79.84 Long term (current) use of oral hypoglycemic drugs; Z79.891 Long term (current) use of opiate analgesic; Z98.890 Other specified postprocedural states
CPT/HCPCS: 27784; 27829; 82948; 99199; J0690; A9270; C1713; J1100; J1171; J1885; J2250; J2405; J2704; J3010; J7120

== ENCOUNTER 2025-04-18 07:56 | Outpatient (CLI) | payer MEDICARE, MEDICAID, SELFPAY ==
--- NOTE | ~2025-04-18 | XR_ITS ---
EXAMINATION: XR ankle RT min 3V DATE: 04/18/2025 08:17 INDICATION: Right ankle pain TECHNIQUE: 4 images of the right ankle were obtained. COMPARISON: 03/29/2025 FINDINGS: Interval removal of the casting material. Grossly stable sideplate and screws transfixing a fracture of the distal right fibula which is similar to the study from 03/29/2025. Talar dome is unremarkable. Soft tissue swelling about the right ankle. Small plantar and posterior calcaneal spurs. IMPRESSION: 1. Interval removal of the casting material. 2. Grossly stable sideplate and screws transfixing a fracture of the distal right fibula which is similar to the study from 03/29/2025. Reviewed, dictated and finalized at location Q. IMPRESSION: 1. Interval removal of the casting material. 2. Grossly stable sideplate and screws transfixing a fracture of the distal rig ht fibula which is similar to the study from 03/29/2025.
--- OUTSIDE RECORDS SUMMARY | 2025-04-18 08:23 | XMS_ITS | Clinical Summary ---
Author Organization [facility] Address [address] [place] [id number] Care Team Providers Care Air Traffic Systems Technician Name Role Phone Unavailable Primary Care Provider [...] 12/24/2009 Zoster Vaccines (1 of 2) 12/24/2009 Dexa Scan (General) 12/24/2024 COVID-19 Vaccine ( - 2023-2 5 season) 2025 RSV Immunization or 60+ Years (1 - [...]
== END 2025-04-18 07:57 | disposition home or self-care (01) ==
LOC: CHSIMG 07:58
PROVIDERS: PCP Internal Medicine; Visit Provider Orthopaedic Surgery
DX: M25.571 Pain in right ankle and joints of right foot (principal)
CPT/HCPCS: 73610

== ENCOUNTER 2025-05-16 08:08 | Outpatient (CLI) | payer MEDICARE, SELFPAY ==
--- NOTE | ~2025-05-16 | XR_ITS ---
EXAMINATION: XR ankle RT min 3V, 05/16/2025 8:10 CDT HISTORY: M25.571 - Pain in right ankle and joints of right foot COMPARISON: No comparisons available. Findings: Postsurgical changes with fixation of the distal fibula, no acute fracture is identified No significant degenerative changes. Soft tissues unremarkable. Impression: No acute fracture or malalignment. Reviewed, dictated and finalized at location P. Impression: No acute fracture or malalignment.
--- OUTSIDE RECORDS SUMMARY | 2025-05-16 08:18 | XMS_ITS | Clinical Summary ---
Author Organization [facility] Address [address] [place] [id number] Care Team Providers Care Rehabilitation Therapy Technician Name Role Phone Unavailable Primary Care [...] Vaccine ( - 2023-2 5 season) 2025 Influenza Adult (#1) 2025 RSV Immunization or 60+ Years (1 [...]
== END 2025-05-16 08:09 | disposition home or self-care (01) ==
LOC: CHSIMG 08:11
PROVIDERS: PCP Internal Medicine; Visit Provider Orthopaedic Surgery
DX: M25.571 Pain in right ankle and joints of right foot (principal)
CPT/HCPCS: 73610

== ENCOUNTER 2025-05-30 08:42 | Outpatient (CLI) | payer MEDICARE, MEDICAID, SELFPAY ==
--- NOTE | ~2025-05-30 | XR_ITS ---
EXAMINATION: XR ankle RT min 3V, 05/30/2025 8:50 CDT HISTORY: 3-4 month fracture/surgery F/U, medial pain COMPARISON: No comparisons available. Findings: Fixation of the distal fibula with healing fractures No significant degenerative changes. Soft tissues unremarkable. Impression: Post surgical changes Reviewed, dictated and finalized at location P. Impression: Post surgical changes
--- OUTSIDE RECORDS SUMMARY | 2025-05-30 09:16 | XMS_ITS | Clinical Summary ---
Author Organization [facility] Address [address] [place] [id number] Care Team Providers Care Carpenter Mine Name Role Phone Unavailable Primary Care Provider [...] Scan (General) 12/24/2024 COVID-19 Vaccine ( - 2024-2 6 season) 2025 Influenza Adult (#1) 2025 RSV Immunization or 60+ Years (1 - 1-dose 75+ series) 12/24/2034 Hepatitis A Vaccines Aged Out No long er eligible based on patient's age to complete this topic Meningococcal B Vaccine Aged Out No l onger eligible based on patient's age to complete this topic Meningococcal Vaccine Aged Out No shaan cb eligible based on patient's age to complete this topic RSV Immunizations Under 20 Months Aged Out No longer eligible based on patient's age to complete this topic
== END 2025-05-30 08:43 | disposition home or self-care (01) ==
PROVIDERS: PCP Internal Medicine; Visit Provider Orthopaedic Surgery
DX: M25.571 Pain in right ankle and joints of right foot (principal)
CPT/HCPCS: 73610